=== PATIENT | female | born 1975 | race Hispanic/Latino ===

== ENCOUNTER 2021-08-03 08:53 | Emergency (ER) | payer SELFPAY ==
[2021-08-03] MEDS ORDERED: Dexamethasone 4 MG TAB ONE (09:51)
[2021-08-03 11:55] LABS: SARS-CoV-2 NAA Rapid Test Not Detected (NotDetected)
== END 2021-08-03 11:28 | disposition home or self-care (01) ==
LOC: ERS 08:53
DX: J02.9 Acute pharyngitis, unspecified (principal); Z20.822 Contact with and (suspected) exposure to COVID-19; Z79.899 Other long term (current) drug therapy
CPT/HCPCS: 0240U; 87081; 87430; 99283; J8540

== ENCOUNTER 2023-01-05 23:13 | Emergency (ER) | payer SELFPAY ==
[2023-01-06] MEDS ORDERED: Boostrix 0.5 ML (Tdap) VIAL (>/=7 yrs of age) ONE
[2023-01-06] MEDS ORDERED: Acetaminophen 500 MG TAB ONE
== END 2023-01-06 01:16 | disposition home or self-care (01) ==
LOC: ERS 23:13
DX: S01.21XA Laceration without foreign body of nose, initial encounter (principal); Y04.8XXA Assault by other bodily force, initial encounter; Z23 Encounter for immunization
CPT/HCPCS: 70450; 70486; 90471; 90715